=== PATIENT | female | born 1945 | race Caucasian/White ===

== ENCOUNTER → 2019-05-25 | Outpatient (CLI) | payer MEDICARE ==
--- NOTE | 2019-05-26 13:12 | PCVCIMAG ---
APPROVED REPORT Study performed: 05/25/2019 10:54:44 Exam: Stress Echocardiogram Indication: Chest pain, dm, htn, hlp Patient Location: Echo lab Stress Nurse: Liliam Tripathi RN Status: routine Ht: 5 ft 1 in HR: 65 bpm BP: 130/72 mmHg Rhythm: NSR Procedure The patient underwent an Exercise Stress Test using the Mario Protocol. Blood pressure, heart rate, and EKG were monitored. An Echocardiogram was performed by emergency department technician in four stages in quad fashion. At peak stress, four selected images were obtained and placed side by side with resting images for comparison. Stress Test Details Stress Test: Exercise stress testing was performed using a Mario protocol. HR Resting HR: 65 bpmMax Heart Rate (APMHR): 144 bpm Max HR Achieved: 136 bpmTarget HR (85% APMHR): 122 bpm % of APMHR: 94 Recovery HR: 65 bpm HR response to stress: Normal HR response to stress BP Resting BP: 130/72 mmHg Max BP: 158/68 mmHg Recovery BP: 148/72 mmHg BP response to stress: Normal blood pressure response to stress. ECG Resting ECG: Sinus Rhythm Stress ECG: Sinus Rhythm ST Change: equivocal inferior ST depression Arrhythmia: None Recovery ECG: Sinus Rhythm Recovery ST Change: equivocal inferior ST depression Recovery Arrhythmia: None Clinical Reason for Termination: Maximal effort Stress Symptoms: Dyspnea Exercise duration: 7 min sec Highest Stage Achieved: Stage 3: 3.4 mph at 14% grade. Exercise capacity: 10.1 METs Overall Exercise Capacity for Age: Normal Scale: Active Angina Score: None Stress ECG Conclusion 1. Subjectively negative for ischemia 2. Elective cardiographic been negative for ischemia 3. Average functional capacity Pre-Stress Echo The resting Echocardiogram showed normal left ventricular contractility with an estimated Ejection Fraction of about >55%. The resting echocardiogram demonstrated normal wall motion in all wall segments. Post-Stress Echo The stress Echocardiogram showed normal left ventricular contractility with an estimated Ejection Fraction of about 65%. Compared to rest, there were no stress-induced wall motion abnormalities. Clinical No clinical evidence for ischemia. Conclusion Clinical Response: Non-ischemic Exercise Capacity: Average Stress ECG Response: Equivocal, ST changes no supported by echocardiogram imaging Stress Echo Images: Non-ischemic The left ventricle is normal in size and wall thickness in both the rest and stress images. Mild mitral regurgitation. Mild tricupsid regurgitation with PAP of 33 mmHg. Normal aortic valve. Trace pulmonic insufficiency. No valvular stenosis. 1. Low risk study for ischemia Other Information Study Quality: Adequate <Conclusion> The left ventricle is normal in size and wall thickness in both the rest and stress images. Mild mitral regurgitation. Mild tricupsid regurgitation with PAP of 33 mmHg. Normal aortic valve. Trace pulmonic insufficiency. No valvular stenosis. 1. Low risk study for ischemia
== END | disposition home or self-care (01) ==
LOC: PCVCIMAG 10:46
PROVIDERS: ATTEND Internal Medicine
DX: I08.1 Rheumatic disorders of both mitral and tricuspid valves (principal); I25.9 Chronic ischemic heart disease, unspecified; I10 Essential (primary) hypertension; E11.9 Type 2 diabetes mellitus without complications; E78.00 Pure hypercholesterolemia, unspecified
CPT/HCPCS: 93325; 93351